=== PATIENT | female | born 1930 | race Caucasian/White ===

== ENCOUNTER 2019-12-25 17:47 | Inpatient (IN) | payer MEDICARE, BC ==
[2019-12-25] MEDS ORDERED: Senokot S 8.6-50 MG TAB PO PRN (20:33)
[2019-12-25] MEDS ORDERED: Bisacodyl 5 MG TAB PO PRN (20:33)
[2019-12-25] MEDS: Famotidine 20 MG TAB PO SCH (22:04)
[2019-12-25] MEDS: Cyclobenzaprine 10 MG TAB PO PRN (22:10)
[2019-12-25] MEDS: HYDROcodone/Acetaminophen 5/325 mg Tablet PO PRN (23:01)
[2019-12-26 05:41] LABS: Anion Gap 14 mmol/L (10-20); BUN (Urea Nitrogen) 26 mg/dL (9.8-20.1); Calc. Creatinine Clearance 41 mL/min (70-130); Calcium 8.4 mg/dL (7.8-10.44); Chloride 99 mmol/L (98-107); Estimated GFR-MDRD 64; Glucose 94 mg/dL (83-110); Potassium 3.7 mmol/L (3.5-5.1); Sodium 135 mmol/L (136-145)
[2019-12-26 05:56] LABS: Carbon Dioxide 26 mmol/L (23-31)
[2019-12-26 06:15] LABS: Hemoglobin 9.5 g/dL (12.0-16.0); Mean Corpuscular Hemoglobin 30.3 pg (27.0-31.0); Mean Corpuscular Volume 96.3 fL (78.0-98.0); Red Blood Cell (RBC) Count 3.14 mill/uL (4.20-5.40); White Blood Cell (WBC) Count 7.8 thou/uL (4.8-10.8)
[2019-12-26 06:16] LABS: Band 5 % (5-11); Lymphocytes 21 % (21-51); MDiff Complete? YES; Manual Diff?? YES; Mean Corpuscular HGB CONC 31.4 g/dL (32.0-36.0); Mean Platelet Volume 7.2 fL (7.4-10.4); Neutrophil 70 % (42-75); Platelet Count 243 thou/uL (130-400); RBC Distribution Width 13.1 % (11.5-14.5); Reactive Lymphocytes 3 % (0-10)
[2019-12-26 06:17] LABS: Eosinophils 1 % (0-10)
[2019-12-26] MEDS: Famotidine 20 MG TAB PO SCH ×2 (08:55→21:04)
[2019-12-26] MEDS: Enoxaparin Sodium 40 MG/0.4 ML SYRINGE SC SCH (08:55)
[2019-12-26] MEDS: HYDROcodone/Acetaminophen 5/325 mg Tablet PO PRN ×2 (08:55→14:26)
[2019-12-26] MEDS: Citalopram 20 MG TAB PO SCH (08:57)
[2019-12-26] MEDS: Amlodipine 5 MG TAB PO SCH (08:57)
[2019-12-26] MEDS: Furosemide 40 MG TAB PO SCH (08:57)
[2019-12-26] MEDS ORDERED: Lisinopril 20 MG TAB PO SCH (09:00)
[2019-12-26] MEDS ORDERED: Loperamide HCl 2 MG CAP PO PRN ×2 (15:34→15:45)
[2019-12-26] MEDS: Lisinopril 20 MG TAB PO SCH (21:03)
[2019-12-26] MEDS: Clindamycin 150 MG CAP PO SCH (21:04)
[2019-12-26] MEDS: Acetaminophen 325 MG TAB PO PRN (21:04)
[2019-12-26] MEDS: Cyclobenzaprine 10 MG TAB PO PRN (21:04)
[2019-12-27] MEDS: Enoxaparin Sodium 40 MG/0.4 ML SYRINGE SC SCH (08:11)
[2019-12-27] MEDS: Amlodipine 5 MG TAB PO SCH (08:12)
[2019-12-27] MEDS: Clindamycin 150 MG CAP PO SCH ×3 (08:12→20:36)
[2019-12-27] MEDS: Famotidine 20 MG TAB PO SCH ×2 (08:12→20:36)
[2019-12-27] MEDS: Citalopram 20 MG TAB PO SCH (08:13)
[2019-12-27] MEDS: Furosemide 40 MG TAB PO SCH (08:13)
[2019-12-27] MEDS: Lisinopril 20 MG TAB PO SCH ×2 (08:14→20:37)
[2019-12-27] MEDS: Acetaminophen 325 MG TAB PO PRN (08:45)
[2019-12-27] MEDS: Cyclobenzaprine 10 MG TAB PO PRN ×2 (08:45→20:35)
[2019-12-27] MEDS: HYDROcodone/Acetaminophen 5/325 mg Tablet PO PRN (20:36)
--- NOTE | 2019-12-28 05:26 | HP ---
HISTORY OF PRESENT ILLNESS: Ms. Shannon Rutherford is an 89-year-old female, who originally presented to [facility] in [place] after a fall. She was found to have two femur fractures as well as a vertebral fracture. She was put in an [place] collar. She was followed up by Neurosurgery, who again recommended continuing the [place] collar. She has not had any vertebral surgery. Orthopedics did go in and pin the femur; however, she eventually required a right total hip arthroplasty. She was put on two weeks antibiotics with clindamycin for prophylaxis. She required PT and OT services and she recovered well from this surgery. However, she does need continued inpatient services. She was transferred here to [facility] in [place] for further PT and OT services. She does have an [place] collar in place. She is ready for physical therapy and very involved in her own care. REVIEW OF SYSTEMS: GENERAL: No fever. Denies any fever or chills. Denies any weakness other than from the right hip surgery. She denies any neck pain. HEENT: Denies any rhinorrhea or congestion. RESPIRATORY: Denies any cough or congestion. CARDIOVASCULAR: Denies any chest pain, palpitations, or edema. GI: Denies any nausea, vomiting, or diarrhea. MEDICATIONS: Medications taken from discharge summary are: 1. Senokot two tabs p.o. at bedtime. 2. MiraLAX 1 cap p.o. b.i.d. 3. Clindamycin 300 p.o. t.i.d. 4. Pravastatin 1 tab p.o. at bedtime. 5. Omeprazole 40 mg p.o. daily. 6. Lisinopril 10 one tab p.o. daily. 7. Gabapentin 300 p.o. t.i.d. 8. Acetaminophen 650 p.o. q.8 hours p.r.n. 9. Furosemide 1 tab p.o. daily. 10. Citalopram 20 mg p.o. daily. 11. Alendronate 70 mg p.o. q.7 days. 12. Norvasc 1 tab p.o. daily. FAMILY HISTORY: Noncontributory. SOCIAL HISTORY: Denies any tobacco use, alcohol use, or illicit drug use. PHYSICAL EXAMINATION: GENERAL: A well-appearing 89-year-old female with [place] collar in place, in no acute distress. The patient is alert and oriented x4, very pleasant. VITAL SIGNS: On admission are blood pressure 173/56, temperature 98.2, pulse 78 to 103, respiratory rate 17 to 20, O2 saturations 94% to 97% on room air. HEENT: Again, [place] collar is in place. NECK: No thyromegaly or goiter. RESPIRATORY: Clear to auscultation bilaterally. No wheezes or rhonchi. CARDIOVASCULAR: Regular rate and rhythm. No murmurs, gallops, or rubs. GI: Soft, nontender to palpation. Bowel sounds positive in all 4 quadrants. no masses felt. EXTREMITIES: Right hip incision seen, clean, dry, and intact. LABORATORY DATA: White cells 7.8, hemoglobin and hematocrit 9.5 and 30.2, platelets 243. Sodium 135, potassium 3.7, chloride 99, carbon dioxide 26, BUN and creatinine 26 and 0.84, GFR 64, glucose 94, and calcium 8.4. ASSESSMENT: 1. Weakness secondary to right total hip arthroplasty and fracture. 2. Hypertension. 3. Constipation. 4. Depression. 5. Osteoporosis. PLAN: 1. To start the patient on a pain management with acetaminophen. May give the patient tramadol if needed. PT and OT consult. 2. Continue blood pressure medication, but we will increase her lisinopril to b.i.d. and monitor with q.4 hour vital signs. 3. MiraLAX p.r.n. for constipation. Bisacodyl p.r.n. for constipation. 4. Continue citalopram. 5. Hospitalist at [facility] recommended two weeks of antibiotic prophylaxis with clindamycin and we will continue that. 6. Continue [place] collar. I will need to follow up with Orthopedic Surgery at [facility] on how long they would like that collar to be in place. 7. Lovenox for DVT prophylaxis. 8. Famotidine for GI prophylaxis. 9. Follow up with PT, OT, and discharge planning. Job ID: [id number] MTDD
--- NOTE | 2019-12-28 08:34 | PRG ---
DATE OF SERVICE: 12/27/2019 SUBJECTIVE: The patient is a pleasant 89-year-old female. Today, she is up in her chair and doing well. She is participating well with PT and OT. She is requiring a good amount of therapy and will likely be here for a week or so with her therapy. We will need to do discharge planning as we go along with possible home health as well. She has no complaints today. However, she does say that her pain is slightly worse today. However, the [place] and Tylenol do help with this pain. No complaints otherwise. Her son is in the room today and he has no questions either. REVIEW OF SYSTEMS: GENERAL: No fever or chills. CARDIO: No chest pain. No palpitations. RESPIRATORY: No cough, no congestion. GI: No vomiting or diarrhea. PHYSICAL EXAMINATION: VITAL SIGNS: Today, blood pressure 136/63, temperature 99.4, pulse 88, respiratory rate 18, O2 sats 95% on room air. GENERAL: Well-appearing 89-year-old female, in no acute distress. HEENT: The patient does have [place] collar in place, but she is up in the chair and able to eat. CARDIO: Regular rate and rhythm. No murmurs, gallops, or rubs. RESPIRATORY: Clear to auscultation bilaterally. No wheezes or rhonchi. GI: Soft, nontender. Bowel sounds are present in all four quadrants. EXTREMITIES: Right hip incision is clean, dry, and intact. LABORATORY DATA: No new labs today. ASSESSMENT: 1. Weakness, status post right total hip arthroplasty. 2. Vertebral fracture with [place] collar. 3. Hypertension, improving. 4. Constipation. PLAN: 1. Continue the patient's Norvasc at 10 mg as well as her lisinopril with 20 mg b.i.d. 2. Continue the patient's clindamycin for prophylaxis. 3. Continue citalopram. 4. Continue [place] collar for now. We will need to contact Neurosurgery at [facility] to see what the prognosis with that is. 5. Continue pain management. Continue PT and OT services. 6. Continue discharge planning with possible home health as needed. Job ID: [id number] MTDD
[2019-12-28] MEDS: Enoxaparin Sodium 40 MG/0.4 ML SYRINGE SC SCH (08:43)
[2019-12-28] MEDS: Clindamycin 150 MG CAP PO SCH ×3 (08:43→20:59)
[2019-12-28] MEDS: Acetaminophen 325 MG TAB PO PRN (08:43)
[2019-12-28] MEDS: Amlodipine 5 MG TAB PO SCH (08:44)
[2019-12-28] MEDS: Citalopram 20 MG TAB PO SCH (08:44)
[2019-12-28] MEDS: Furosemide 40 MG TAB PO SCH (08:44)
[2019-12-28] MEDS: Lisinopril 20 MG TAB PO SCH ×2 (08:44→21:01)
[2019-12-28] MEDS: Famotidine 20 MG TAB PO SCH ×2 (08:44→21:00)
[2019-12-28] MEDS: HYDROcodone/Acetaminophen 5/325 mg Tablet PO PRN ×3 (11:58→21:05)
--- NOTE | 2019-12-28 16:36 | PDOC.BPN ---
- Brief Progress Note Encounter Date: 12/28/19 Encounter Time: 16:32 SUBJECTIVE: doing well. no complaints today, other than pain from surgery. But this is well controlled with PO meds. Awaiting records from [facility] regarding [place] collar. Participating well in therapy. ROS: Denies fever, chills, N/V/D, constipation. OBJECTIVE: Vital Signs - Most Recent Temp Pulse Resp BP Pulse Ox 98.0 F 80 18 125/60 98 12/28/19 08:00 12/28/19 08:44 12/28/19 08:00 12/28/19 08:44 12/28/19 08:00 PE: Gen: Well-appearing. NAD. CV: RRR, no murmurs, gallops or rubs. Resp: CTAB. no wheezes or rhonchi. GI: Soft non-tender. BS+ x4. Ext: [place] collar in place. R hip incision c/d/i. Labs: No new labs today ASSESSMENT: 1. Weakness s/p R hip fracture repair and replacement, with vertebral fracture 2. Hypertension, improving PLAN: -Continue oral anti-hypertensives. Will switch vitals back to qShift now. -Continue PT/OT services -Need to f/u with [facility] in regards to [place] Collar. Asked nursing staff to try and get the discharge summary for patient.
[2019-12-29] MEDS: Amlodipine 5 MG TAB PO SCH (08:52)
[2019-12-29] MEDS: Enoxaparin Sodium 40 MG/0.4 ML SYRINGE SC SCH (08:52)
[2019-12-29] MEDS: Citalopram 20 MG TAB PO SCH (08:53)
[2019-12-29] MEDS: Lisinopril 20 MG TAB PO SCH ×2 (08:53→20:15)
[2019-12-29] MEDS: Famotidine 20 MG TAB PO SCH ×2 (08:53→20:14)
[2019-12-29] MEDS: Clindamycin 150 MG CAP PO SCH ×3 (08:53→20:15)
[2019-12-29] MEDS: Furosemide 40 MG TAB PO SCH (08:54)
[2019-12-29] MEDS: HYDROcodone/Acetaminophen 5/325 mg Tablet PO PRN ×3 (08:58→20:15)
[2019-12-29] MEDS: Acetaminophen 325 MG TAB PO PRN (14:14)
[2019-12-29] MEDS ORDERED: Bisacodyl 5 MG TAB PO PRN (20:09)
[2019-12-29] MEDS ORDERED: Loperamide HCl 2 MG CAP PO PRN (20:10)
[2019-12-30] MEDS: HYDROcodone/Acetaminophen 5/325 mg Tablet PO PRN ×4 (06:26→20:59)
[2019-12-30] MEDS: Citalopram 20 MG TAB PO SCH (08:48)
[2019-12-30] MEDS: Clindamycin 150 MG CAP PO SCH ×3 (08:48→20:59)
[2019-12-30] MEDS: Amlodipine 5 MG TAB PO SCH (08:48)
[2019-12-30] MEDS: Famotidine 20 MG TAB PO SCH ×2 (08:49→21:00)
[2019-12-30] MEDS: Furosemide 40 MG TAB PO SCH (08:49)
[2019-12-30] MEDS: Enoxaparin Sodium 40 MG/0.4 ML SYRINGE SC SCH (08:49)
[2019-12-30] MEDS: Lisinopril 20 MG TAB PO SCH ×2 (08:49→20:59)
[2019-12-30] MEDS: Acetaminophen 325 MG TAB PO PRN (15:03)
[2019-12-31] MEDS: HYDROcodone/Acetaminophen 5/325 mg Tablet PO PRN ×3 (07:14→18:35)
[2019-12-31] MEDS ORDERED: Amlodipine 5 MG TAB ONE (07:56)
[2019-12-31] MEDS: Citalopram 20 MG TAB PO SCH (08:44)
[2019-12-31] MEDS: Famotidine 20 MG TAB PO SCH ×2 (08:44→20:47)
[2019-12-31] MEDS: Enoxaparin Sodium 40 MG/0.4 ML SYRINGE SC SCH (08:45)
[2019-12-31] MEDS: Clindamycin 150 MG CAP PO SCH ×3 (08:45→20:47)
[2019-12-31] MEDS: Furosemide 40 MG TAB PO SCH (08:45)
[2019-12-31] MEDS: Amlodipine 5 MG TAB PO SCH (08:45)
[2019-12-31] MEDS: Lisinopril 20 MG TAB PO SCH ×2 (08:45→20:48)
[2019-12-31] MEDS: Acetaminophen 325 MG TAB PO PRN ×2 (09:40→20:48)
[2019-12-31] MEDS ORDERED: HYDROcodone/Acetaminophen 5/325 mg Tablet ONE (14:18)
[2019-12-31] MEDS: Cyclobenzaprine 10 MG TAB PO PRN (20:48)
[2020-01-01] MEDS: Famotidine 20 MG TAB PO SCH ×2 (07:50→19:57)
[2020-01-01] MEDS: Furosemide 40 MG TAB PO SCH (07:50)
[2020-01-01] MEDS: Citalopram 20 MG TAB PO SCH (07:50)
[2020-01-01] MEDS: Enoxaparin Sodium 40 MG/0.4 ML SYRINGE SC SCH (07:50)
[2020-01-01] MEDS: Acetaminophen 325 MG TAB PO PRN ×2 (07:51→19:56)
[2020-01-01] MEDS: Clindamycin 150 MG CAP PO SCH ×3 (07:51→19:56)
[2020-01-01] MEDS: Lisinopril 20 MG TAB PO SCH ×2 (07:51→19:57)
[2020-01-01] MEDS: Amlodipine 5 MG TAB PO SCH (07:52)
[2020-01-01] MEDS: Cyclobenzaprine 10 MG TAB PO PRN ×2 (07:52→19:57)
[2020-01-01] MEDS: HYDROcodone/Acetaminophen 5/325 mg Tablet PO PRN ×2 (10:00→16:59)
--- NOTE | 2020-01-01 16:27 | PDOC.BPN ---
- Brief Progress Note Encounter Date: 01/01/20 Encounter Time: 16:23 SUBJECTIVE: Doing well. frustrated that she is still wearing neck brace. discussed that these were precautions from prev hospital stay and she will need this until she can f/u with Neurosx. However, we will try to get in contact with doctors from [facility]. ROS: No fever, chills, cough, congestion, CP OBJECTIVE: Vital Signs - Most Recent Temp Pulse Resp BP Pulse Ox 98.7 F 95 20 159/65 H 94 L 01/01/20 07:42 01/01/20 07:52 01/01/20 07:42 01/01/20 07:42 01/01/20 07:42 No new labs Physical Exam General: Well-appearing, NAD. [place] collar in place. CV: RRR, no murmurs Resp: CTAB GI: soft, non tender EXT: R hip incision c/d/i ASSESSMENT: 1. Weakness s/p R hip fracture repair and replacement, with vertebral fracture 2. Hypertension, improving PLAN: -Continue oral anti-hypertensives. Will switch vitals back to qShift now. -Continue PT/OT services -Need to f/u with RADIOLOGIC THERAPIST in regards to [place] Collar. Got D/C summary from RADIOLOGIC THERAPIST. States [place] collar needs to be in place until she can see Neurosx. will need to contact them to clarify. Pt does have appt in Jan for neurosx but this will be video conference and not in person.
[2020-01-02] MEDS: Famotidine 20 MG TAB PO SCH ×2 (08:58→20:15)
[2020-01-02] MEDS: Furosemide 40 MG TAB PO SCH (08:59)
[2020-01-02] MEDS: Lisinopril 20 MG TAB PO SCH ×2 (08:59→20:16)
[2020-01-02] MEDS: Amlodipine 5 MG TAB PO SCH (08:59)
[2020-01-02] MEDS: Clindamycin 150 MG CAP PO SCH ×3 (08:59→20:17)
[2020-01-02] MEDS: Enoxaparin Sodium 40 MG/0.4 ML SYRINGE SC SCH (09:00)
[2020-01-02] MEDS: Citalopram 20 MG TAB PO SCH (09:00)
[2020-01-02] MEDS: HYDROcodone/Acetaminophen 5/325 mg Tablet PO PRN ×3 (09:12→20:16)
--- NOTE | 2020-01-02 13:21 | PDOC.BPN ---
- Brief Progress Note Encounter Date: 01/02/20 Encounter Time: 13:19 SUBJECTIVE: Doing well. frustrated that she is still wearing neck brace. discussed that these were precautions from prev hospital stay and she will need this until she can f/u with Neurosx. However, we will try to get in contact with doctors from [facility]. ROS: No fever, chills, cough, congestion, CP OBJECTIVE: Vital Signs - Most Recent Temp Pulse Resp BP Pulse Ox 96.3 F L 97 18 125/57 L 98 01/02/20 08:00 01/02/20 08:00 01/02/20 08:00 01/02/20 08:00 01/02/20 08:00 no new labs Physical Exam General: Well-appearing, NAD. [place] collar in place. CV: RRR, no murmurs Resp: CTAB GI: soft, non tender EXT: R hip incision c/d/i ASSESSMENT: 1. Weakness s/p R hip fracture repair and replacement, with vertebral fracture 2. Hypertension, improving PLAN: -Continue oral anti-hypertensives. -Continue PT/OT services -Patient is going for schedule f/u with ortho today -Neurosx appt set for Jan 17. We will keep [place] collar on prophylactically until then
[2020-01-02] MEDS: Cyclobenzaprine 10 MG TAB PO PRN (20:16)
[2020-01-03] MEDS: Enoxaparin Sodium 40 MG/0.4 ML SYRINGE SC SCH (08:19)
[2020-01-03] MEDS: Clindamycin 150 MG CAP PO SCH ×3 (08:19→20:42)
[2020-01-03] MEDS: Citalopram 20 MG TAB PO SCH (08:19)
[2020-01-03] MEDS: Lisinopril 20 MG TAB PO SCH ×2 (08:20→20:41)
[2020-01-03] MEDS: HYDROcodone/Acetaminophen 5/325 mg Tablet PO PRN ×3 (08:20→20:41)
[2020-01-03] MEDS: Amlodipine 5 MG TAB PO SCH (08:20)
[2020-01-03] MEDS: Furosemide 40 MG TAB PO SCH (08:20)
[2020-01-03] MEDS: Famotidine 20 MG TAB PO SCH ×2 (08:20→20:41)
[2020-01-04 05:24] LABS: #Basophils 0.1 thou/uL (0.0-0.2); #Eosinphils 0.3 thou/uL (0.0-0.7); #Monocytes 0.6 thou/uL (0.11-0.59); #Neutrophils 4.7 thou/uL (1.40-6.50); %Basophils 1.6 % (0.0-1.0); %Eosinophils 5.1 % (0.0-10.0); %Lymphocytes 14.6 % (21.0-51.0); %Monocytes 9.5 % (0.0-10.0); %Neutrophils 69.2 % (42.0-75.0); Mean Corpuscular Hemoglobin 30.7 pg (27.0-31.0); Mean Corpuscular Volume 95.9 fL (78.0-98.0); Mean Platelet Volume 6.1 fL (7.4-10.4); Platelet Count 426 thou/uL (130-400); RBC Distribution Width 13.3 % (11.5-14.5); Red Blood Cell (RBC) Count 2.92 mill/uL (4.20-5.40); White Blood Cell (WBC) Count 6.7 thou/uL (4.8-10.8)
[2020-01-04 05:38] LABS: Anion Gap 13 mmol/L (10-20); BUN (Urea Nitrogen) 28 mg/dL (9.8-20.1); Calc. Creatinine Clearance 31 mL/min (70-130); Calcium 8.4 mg/dL (7.8-10.44); Carbon Dioxide 25 mmol/L (23-31); Chloride 103 mmol/L (98-107); Estimated GFR-MDRD 47; Glucose 104 mg/dL (83-110); Potassium 4.3 mmol/L (3.5-5.1); Sodium 137 mmol/L (136-145)
[2020-01-04] MEDS: HYDROcodone/Acetaminophen 5/325 mg Tablet PO PRN ×3 (05:38→21:17)
[2020-01-04] MEDS: Enoxaparin Sodium 40 MG/0.4 ML SYRINGE SC SCH (08:31)
[2020-01-04] MEDS: Furosemide 40 MG TAB PO SCH (08:32)
[2020-01-04] MEDS: Clindamycin 150 MG CAP PO SCH ×3 (08:32→21:15)
[2020-01-04] MEDS: Amlodipine 5 MG TAB PO SCH (08:32)
[2020-01-04] MEDS: Famotidine 20 MG TAB PO SCH ×2 (08:32→21:15)
[2020-01-04] MEDS: Citalopram 20 MG TAB PO SCH (08:32)
[2020-01-04] MEDS: Lisinopril 20 MG TAB PO SCH ×2 (08:33→21:15)
[2020-01-05] MEDS: HYDROcodone/Acetaminophen 5/325 mg Tablet PO PRN ×3 (06:11→21:04)
[2020-01-05] MEDS: Citalopram 20 MG TAB PO SCH (08:41)
[2020-01-05] MEDS: Enoxaparin Sodium 40 MG/0.4 ML SYRINGE SC SCH (08:42)
[2020-01-05] MEDS: Lisinopril 20 MG TAB PO SCH ×2 (08:42→21:03)
[2020-01-05] MEDS: Famotidine 20 MG TAB PO SCH ×2 (08:42→21:03)
[2020-01-05] MEDS: Furosemide 40 MG TAB PO SCH (08:42)
[2020-01-05] MEDS: Clindamycin 150 MG CAP PO SCH ×3 (08:42→21:03)
[2020-01-05] MEDS: Amlodipine 5 MG TAB PO SCH (10:51)
--- NOTE | 2020-01-05 16:16 | PDOC.BPN ---
- Brief Progress Note Encounter Date: 01/05/20 Encounter Time: 16:15 SUBJECTIVE: Doing well. No complaints today. doing well in therapy. ROS: No fever, chills, cough, congestion, CP OBJECTIVE: Vital Signs - Most Recent Temp Pulse Resp BP Pulse Ox 98.0 F 82 18 130/57 L 100 01/05/20 08:36 01/05/20 08:36 01/05/20 08:36 01/05/20 08:36 01/05/20 08:36 Laboratory Results 01/04/20 01/04/20 05:10 05:10 WBC 6.7 RBC 2.92 L Hgb 9.0 L Hct 28.1 L MCV 95.9 MCH 30.7 MCHC 32.0 RDW 13.3 Plt Count 426 H MPV 6.1 L Neutrophils % 69.2 Lymphocytes % 14.6 L Monocytes % 9.5 Eosinophils % 5.1 Basophils % 1.6 H Neutrophils # 4.7 Lymphocytes # 1.0 L Monocytes # 0.6 H Eosinophils # 0.3 Basophils # 0.1 Sodium 137 Potassium 4.3 Chloride 103 Carbon Dioxide 25 Anion Gap 13 BUN 28 H Creatinine 1.10 Estimated GFR (MDRD) 47 Glucose 104 Calcium 8.4 Physical Exam General: Well-appearing, NAD. [place] collar in place. CV: RRR, no murmurs Resp: CTAB GI: soft, non tender EXT: R hip incision c/d/i ASSESSMENT: 1. Weakness s/p R hip fracture repair and replacement, with vertebral fracture 2. Hypertension, improving PLAN: -Continue oral anti-hypertensives. -Continue PT/OT services -Patient is going for schedule f/u with ortho today -Neurosx appt set for Jan 17. We will keep [place] collar on prophylactically until then
[2020-01-06] MEDS: Enoxaparin Sodium 40 MG/0.4 ML SYRINGE SC SCH (08:13)
[2020-01-06] MEDS: Citalopram 20 MG TAB PO SCH (08:14)
[2020-01-06] MEDS: Clindamycin 150 MG CAP PO SCH ×3 (08:14→21:16)
[2020-01-06] MEDS: Famotidine 20 MG TAB PO SCH ×2 (08:14→21:16)
[2020-01-06] MEDS: Lisinopril 20 MG TAB PO SCH ×2 (08:15→21:17)
[2020-01-06] MEDS: Amlodipine 5 MG TAB PO SCH (08:15)
[2020-01-06] MEDS: Furosemide 40 MG TAB PO SCH (08:15)
[2020-01-06] MEDS: HYDROcodone/Acetaminophen 5/325 mg Tablet PO PRN ×3 (08:16→21:17)
--- NOTE | 2020-01-06 16:01 | PRG ---
DATE OF SERVICE: 01/06/2020 SUBJECTIVE: Ms. Rutherford is up in her wheelchair. She is tolerating her hard cervical collar. She denies any questions or concerns. She is happy with her progress. OBJECTIVE: VITAL SIGNS: She is afebrile, heart rate 85, respirations 20, oxygen saturation 93% on room air, blood pressure is 129/60. CARDIOVASCULAR SYSTEM: S1 and S2 plus. RESPIRATORY SYSTEM: Normal vesicular breath sounds. ABDOMEN: Soft, nontender. Bowel sounds heard in all quadrants. EXTREMITIES: Without cyanosis or clubbing. IMPRESSION: 1. Right hip fracture, status post surgical fixation. 2. Hypertension. 3. Cervical vertebral fracture, on conservative management. 4. Dyslipidemia. 5. Osteoporosis. 6. Depression and anxiety. 7. Deconditioning. PLAN: 1. Continue current medications. 2. Orthopedic precautions. 3. Heart-healthy diet. 4. Monitor blood pressure and adjust medications. 5. Continue spinal precautions. 6. DVT prophylaxis per primary service. 7. Decubitus precautions. 8. Stress ulcer prophylaxis. 9. Routine laboratory values and therapy. Job ID: [id number]
[2020-01-07] MEDS: Enoxaparin Sodium 40 MG/0.4 ML SYRINGE SC SCH (09:32)
[2020-01-07] MEDS: Famotidine 20 MG TAB PO SCH ×2 (09:32→21:08)
[2020-01-07] MEDS: Clindamycin 150 MG CAP PO SCH ×3 (09:33→21:08)
[2020-01-07] MEDS: Citalopram 20 MG TAB PO SCH (09:33)
[2020-01-07] MEDS: Amlodipine 5 MG TAB PO SCH (09:33)
[2020-01-07] MEDS: Furosemide 40 MG TAB PO SCH (09:33)
[2020-01-07] MEDS: Lisinopril 20 MG TAB PO SCH ×2 (09:34→21:07)
[2020-01-07] MEDS: HYDROcodone/Acetaminophen 5/325 mg Tablet PO PRN ×3 (09:38→21:08)
--- NOTE | 2020-01-07 16:41 | PRG ---
DATE OF SERVICE: SUBJECTIVE: Ms. Rutherford is up in her chair. She apparently had a good lunch. She is tolerating her cervical collar. She denies any questions or concerns. Pain is well controlled. OBJECTIVE: VITAL SIGNS: She is afebrile. T-max 99.3, pulse 100, respirations 20, oxygen saturation 97% on room air, blood pressure 129/56. CARDIOVASCULAR SYSTEM: S1, S2 plus. RESPIRATORY SYSTEM: Normal vesicular breath sounds. ABDOMEN: Soft and nontender. Bowel sounds heard in all quadrants. EXTREMITIES: Without cyanosis or clubbing. CENTRAL NERVOUS SYSTEM: Generalized weakness, otherwise nonfocal. IMPRESSION: 1. Right hip fracture, status post surgical fixation. 2. Cervical vertebral fracture, on conservative management. 3. Hypertension. 4. Dyslipidemia. 5. Osteoporosis. 6. Depression and anxiety. 7. Deconditioning. PLAN: 1. Continue current medications. 2. Heart-healthy diet. 3. Monitor blood pressure and adjust medications. 4. Spinal and orthopedic precautions. 5. Incision care. 6. DVT prophylaxis. 7. Decubitus precautions. 8. Physical therapy. 9. Dr. Cunha will be back tonight. Job ID: [id number]
[2020-01-08] MEDS: HYDROcodone/Acetaminophen 5/325 mg Tablet PO PRN ×3 (07:09→20:27)
[2020-01-08] MEDS: Citalopram 20 MG TAB PO SCH (09:08)
[2020-01-08] MEDS: Amlodipine 5 MG TAB PO SCH (09:08)
[2020-01-08] MEDS: Furosemide 40 MG TAB PO SCH (09:09)
[2020-01-08] MEDS: Lisinopril 20 MG TAB PO SCH ×2 (09:09→20:27)
[2020-01-08] MEDS: Enoxaparin Sodium 40 MG/0.4 ML SYRINGE SC SCH (09:09)
[2020-01-08] MEDS: Famotidine 20 MG TAB PO SCH ×2 (09:09→20:27)
[2020-01-08] MEDS: Clindamycin 150 MG CAP PO SCH ×3 (09:09→20:27)
[2020-01-09 05:35] LABS: #Basophils 0.1 thou/uL (0.0-0.2); #Eosinphils 0.3 thou/uL (0.0-0.7); #Monocytes 0.6 thou/uL (0.11-0.59); #Neutrophils 2.9 thou/uL (1.40-6.50); %Basophils 1.9 % (0.0-1.0); %Eosinophils 6.6 % (0.0-10.0); %Lymphocytes 19.7 % (21.0-51.0); %Monocytes 12.4 % (0.0-10.0); %Neutrophils 59.5 % (42.0-75.0); Hemoglobin 9.7 g/dL (12.0-16.0); Mean Corpuscular HGB CONC 31.1 g/dL (32.0-36.0); Mean Corpuscular Hemoglobin 30.1 pg (27.0-31.0); Mean Corpuscular Volume 96.8 fL (78.0-98.0); Mean Platelet Volume 6.2 fL (7.4-10.4); Platelet Count 346 thou/uL (130-400); RBC Distribution Width 13.1 % (11.5-14.5); Red Blood Cell (RBC) Count 3.22 mill/uL (4.20-5.40); White Blood Cell (WBC) Count 4.9 thou/uL (4.8-10.8)
[2020-01-09 05:48] LABS: Anion Gap 14 mmol/L (10-20); BUN (Urea Nitrogen) 20 mg/dL (9.8-20.1); Calc. Creatinine Clearance 36 mL/min (70-130); Calcium 8.8 mg/dL (7.8-10.44); Carbon Dioxide 27 mmol/L (23-31); Chloride 101 mmol/L (98-107); Estimated GFR-MDRD 57; Glucose 101 mg/dL (83-110); Potassium 4.2 mmol/L (3.5-5.1); Sodium 138 mmol/L (136-145)
[2020-01-09] MEDS: HYDROcodone/Acetaminophen 5/325 mg Tablet PO PRN ×2 (07:00→20:32)
[2020-01-09] MEDS: Amlodipine 5 MG TAB PO SCH (08:49)
[2020-01-09] MEDS: Clindamycin 150 MG CAP PO SCH ×3 (08:49→20:32)
[2020-01-09] MEDS: Enoxaparin Sodium 40 MG/0.4 ML SYRINGE SC SCH (08:50)
[2020-01-09] MEDS: Famotidine 20 MG TAB PO SCH ×2 (08:51→20:32)
[2020-01-09] MEDS: Lisinopril 20 MG TAB PO SCH ×2 (08:51→20:32)
[2020-01-09] MEDS: Furosemide 40 MG TAB PO SCH (08:51)
[2020-01-09] MEDS: Citalopram 20 MG TAB PO SCH (08:51)
[2020-01-09] MEDS: Acetaminophen 325 MG TAB PO PRN (08:57)
--- NOTE | 2020-01-09 11:36 | RAD ---
CERVICAL SPINE SERIES 3 VIEWS: Date: 01/09/2020 HISTORY: Fall. Follow-up. Neck pain. COMPARISON: 01/13/2018 CT examination. FINDINGS: There is a reversal to the normal cervical curve with severe arthritic changes of the spine. Changes are most pronounced at the C5-6 and C6-7 levels. There is an anterolisthesis of C3 on C4 of approxima tely 4.0 mm. Minimal anterolisthesis of C4 on C5. No fractures are appreciated. IMPRESSION: Severe arthritic change of the spine. POS: AH
[2020-01-09] MEDS: Cyclobenzaprine 10 MG TAB PO PRN (20:32)
[2020-01-10] MEDS: HYDROcodone/Acetaminophen 5/325 mg Tablet PO PRN ×4 (01:20→20:25)
[2020-01-10] MEDS: Enoxaparin Sodium 40 MG/0.4 ML SYRINGE SC SCH (09:36)
[2020-01-10] MEDS: Furosemide 40 MG TAB PO SCH (09:37)
[2020-01-10] MEDS: Clindamycin 150 MG CAP PO SCH ×3 (09:37→20:24)
[2020-01-10] MEDS: Lisinopril 20 MG TAB PO SCH ×2 (09:37→20:25)
[2020-01-10] MEDS: Citalopram 20 MG TAB PO SCH (09:37)
[2020-01-10] MEDS: Famotidine 20 MG TAB PO SCH ×2 (09:37→20:25)
[2020-01-10] MEDS: Amlodipine 5 MG TAB PO SCH (09:38)
[2020-01-10] MEDS: Senokot S 8.6-50 MG TAB PO PRN (09:44)
--- NOTE | 2020-01-10 13:03 | PDOC.BPN ---
- Brief Progress Note Encounter Date: 01/10/20 Encounter Time: 13:00 SUBJECTIVE: Doing well. doing well in therapy. Has appt with Dr. Lazcano on 02/01. Has appt with [facility] on 01/16. ROS: No fever, chills, cough, congestion, CP OBJECTIVE: Vital Signs - Most Recent Temp Pulse Resp BP Pulse Ox 97.6 F 95 16 130/59 L 96 01/10/20 07:55 01/10/20 09:38 01/10/20 07:55 01/10/20 09:37 01/10/20 07:55 Physical Exam General: Well-appearing, NAD. [place] collar in place. CV: RRR, no murmurs Resp: CTAB GI: soft, non tender EXT: R hip incision c/d/i ASSESSMENT: 1. Weakness s/p R hip fracture repair and replacement, with vertebral fracture 2. Hypertension, improving PLAN: -Continue oral anti-hypertensives. -Continue PT/OT services -Neurosx appt set for Jan 16. We will keep [place] collar on prophylactically until then. -Case Mngt consulted for discharge planning. PT/OT rec'd home with .
[2020-01-10] MEDS: Cyclobenzaprine 10 MG TAB PO PRN (20:25)
[2020-01-11] MEDS: Acetaminophen 325 MG TAB PO PRN (06:23)
[2020-01-11] MEDS: Citalopram 20 MG TAB PO SCH (09:23)
[2020-01-11] MEDS: Clindamycin 150 MG CAP PO SCH ×3 (09:23→20:48)
[2020-01-11] MEDS: Enoxaparin Sodium 40 MG/0.4 ML SYRINGE SC SCH (09:23)
[2020-01-11] MEDS: Furosemide 40 MG TAB PO SCH (09:24)
[2020-01-11] MEDS: Lisinopril 20 MG TAB PO SCH ×2 (09:24→20:48)
[2020-01-11] MEDS: Amlodipine 5 MG TAB PO SCH (09:24)
[2020-01-11] MEDS: Famotidine 20 MG TAB PO SCH ×2 (09:24→20:48)
[2020-01-11] MEDS: HYDROcodone/Acetaminophen 5/325 mg Tablet PO PRN ×3 (09:27→20:48)
--- NOTE | 2020-01-11 13:16 | PDOC.BPN ---
- Brief Progress Note Encounter Date: 01/11/20 Encounter Time: 13:14 SUBJECTIVE: Doing well. doing well in therapy. Has appt with Dr. Lazcano on 02/01. Has appt with MARIELY on 01/16. ROS: No fever, chills, cough, congestion, CP OBJECTIVE: Vital Signs - Most Recent Temp Pulse Resp BP Pulse Ox 98.7 F 98 18 144/65 H 97 01/11/20 08:00 01/11/20 09:24 01/11/20 08:00 01/11/20 09:24 01/11/20 08:00 Physical Exam General: Well-appearing, NAD. [place] collar in place. CV: RRR, no murmurs Resp: CTAB GI: soft, non tender EXT: R hip incision c/d/i ASSESSMENT: 1. Weakness s/p R hip fracture repair and replacement, with vertebral fracture 2. Hypertension, well controlled PLAN: -Continue oral anti-hypertensives. -Continue PT/OT services -Neurosx appt set for Jan 16. We will keep [place] collar on prophylactically until then. -Case Mngt consulted for discharge planning. PT/OT rec'd home with .
[2020-01-12] MEDS: Lisinopril 20 MG TAB PO SCH ×2 (08:20→20:16)
[2020-01-12] MEDS: Famotidine 20 MG TAB PO SCH ×2 (08:21→20:15)
[2020-01-12] MEDS: Clindamycin 150 MG CAP PO SCH ×3 (08:21→20:16)
[2020-01-12] MEDS: Citalopram 20 MG TAB PO SCH (08:21)
[2020-01-12] MEDS: Amlodipine 5 MG TAB PO SCH (08:21)
[2020-01-12] MEDS: Furosemide 40 MG TAB PO SCH (08:21)
[2020-01-12] MEDS: Enoxaparin Sodium 40 MG/0.4 ML SYRINGE SC SCH (08:22)
[2020-01-12] MEDS: HYDROcodone/Acetaminophen 5/325 mg Tablet PO PRN ×3 (08:30→20:16)
[2020-01-13] MEDS: HYDROcodone/Acetaminophen 5/325 mg Tablet PO PRN ×3 (06:07→21:01)
[2020-01-13 06:21] LABS: #Basophils 0.1 thou/uL (0.0-0.2); #Eosinphils 0.4 thou/uL (0.0-0.7); #Lymphocytes 1.3 thou/uL (1.20-3.40); #Monocytes 0.6 thou/uL (0.11-0.59); #Neutrophils 3.3 thou/uL (1.40-6.50); %Basophils 1.8 % (0.0-1.0); %Eosinophils 7.6 % (0.0-10.0); %Lymphocytes 22.8 % (21.0-51.0); %Monocytes 9.7 % (0.0-10.0); %Neutrophils 58.1 % (42.0-75.0); Hemoglobin 10.9 g/dL (12.0-16.0); Mean Corpuscular HGB CONC 30.9 g/dL (32.0-36.0); Mean Corpuscular Hemoglobin 30.1 pg (27.0-31.0); Mean Corpuscular Volume 97.4 fL (78.0-98.0); Mean Platelet Volume 6.9 fL (7.4-10.4); Platelet Count 343 thou/uL (130-400); RBC Distribution Width 13.5 % (11.5-14.5); Red Blood Cell (RBC) Count 3.62 mill/uL (4.20-5.40); White Blood Cell (WBC) Count 5.6 thou/uL (4.8-10.8)
[2020-01-13 06:31] LABS: Anion Gap 16 mmol/L (10-20); BUN (Urea Nitrogen) 18 mg/dL (9.8-20.1); Calc. Creatinine Clearance 35 mL/min (70-130); Calcium 9.1 mg/dL (7.8-10.44); Carbon Dioxide 27 mmol/L (23-31); Chloride 98 mmol/L (98-107); Estimated GFR-MDRD 55; Glucose 109 mg/dL (83-110); Potassium 3.4 mmol/L (3.5-5.1); Sodium 138 mmol/L (136-145)
[2020-01-13] MEDS: Amlodipine 5 MG TAB PO SCH (08:10)
[2020-01-13] MEDS: Furosemide 40 MG TAB PO SCH (08:10)
[2020-01-13] MEDS: Enoxaparin Sodium 40 MG/0.4 ML SYRINGE SC SCH (08:10)
[2020-01-13] MEDS: Citalopram 20 MG TAB PO SCH (08:11)
[2020-01-13] MEDS: Lisinopril 20 MG TAB PO SCH ×2 (08:11→21:01)
[2020-01-13] MEDS: Clindamycin 150 MG CAP PO SCH ×3 (08:11→21:01)
[2020-01-13] MEDS: Famotidine 20 MG TAB PO SCH ×2 (08:11→21:00)
[2020-01-13] MEDS: Cyclobenzaprine 10 MG TAB PO PRN (21:01)
[2020-01-14 06:44] VITALS: BMI 21.3
--- NOTE | 2020-01-14 07:54 | PDOC.BPN ---
- Brief Progress Note Encounter Date: 01/14/20 Encounter Time: 07:53 SUBJECTIVE: Doing well. Has appt with Dr. Lazcano on 02/01. Has appt with [facility] on 01/16. ROS: No fever, chills, cough, congestion, CP OBJECTIVE: Vital Signs - Most Recent Temp Pulse Resp BP Pulse Ox 98.8 F 100 26 H 135/63 96 01/13/20 19:32 01/13/20 19:32 01/13/20 19:32 01/13/20 21:01 01/13/20 20:00 Physical Exam General: Well-appearing, NAD. [place] collar in place. CV: RRR, no murmurs Resp: CTAB GI: soft, non tender EXT: R hip incision c/d/i ASSESSMENT: 1. Weakness s/p R hip fracture repair and replacement, with vertebral fracture 2. Hypertension, well controlled PLAN: -Continue oral anti-hypertensives. -Continue PT/OT services -Neurosx appt set for Jan 16. We will keep [place] collar on prophylactically until then. -Case Mngt consulted for discharge planning. PT/OT rec'd home with .
[2020-01-14] MEDS: Enoxaparin Sodium 40 MG/0.4 ML SYRINGE SC SCH (07:58)
[2020-01-14] MEDS: Amlodipine 5 MG TAB PO SCH (07:59)
[2020-01-14] MEDS: Clindamycin 150 MG CAP PO SCH ×3 (07:59→20:48)
[2020-01-14] MEDS: Lisinopril 20 MG TAB PO SCH ×2 (08:00→20:48)
[2020-01-14] MEDS: Furosemide 40 MG TAB PO SCH (08:00)
[2020-01-14] MEDS: Famotidine 20 MG TAB PO SCH ×2 (08:00→20:49)
[2020-01-14] MEDS: Citalopram 20 MG TAB PO SCH (08:01)
[2020-01-14] MEDS: HYDROcodone/Acetaminophen 5/325 mg Tablet PO PRN ×3 (08:01→20:50)
[2020-01-14] MEDS: Cyclobenzaprine 10 MG TAB PO PRN (20:49)
[2020-01-15] MEDS: Enoxaparin Sodium 40 MG/0.4 ML SYRINGE SC SCH (07:58)
[2020-01-15] MEDS: Citalopram 20 MG TAB PO SCH (07:59)
[2020-01-15] MEDS: Clindamycin 150 MG CAP PO SCH ×3 (07:59→20:42)
[2020-01-15] MEDS: Famotidine 20 MG TAB PO SCH ×2 (08:00→20:41)
[2020-01-15] MEDS: HYDROcodone/Acetaminophen 5/325 mg Tablet PO PRN ×4 (08:07→20:42)
[2020-01-15] MEDS: Amlodipine 5 MG TAB PO SCH (08:08)
[2020-01-15] MEDS: Lisinopril 20 MG TAB PO SCH ×2 (08:09→20:42)
[2020-01-15] MEDS: Furosemide 40 MG TAB PO SCH (08:10)
[2020-01-15] MEDS: Senokot S 8.6-50 MG TAB PO PRN (16:41)
[2020-01-15] MEDS: Cyclobenzaprine 10 MG TAB PO PRN (20:42)
[2020-01-16 05:40] LABS: Anion Gap 12 mmol/L (10-20); BUN (Urea Nitrogen) 20 mg/dL (9.8-20.1); Calc. Creatinine Clearance 31 mL/min (70-130); Calcium 8.6 mg/dL (7.8-10.44); Carbon Dioxide 28 mmol/L (23-31); Chloride 101 mmol/L (98-107); Estimated GFR-MDRD 56; Glucose 111 mg/dL (83-110); Sodium 137 mmol/L (136-145)
[2020-01-16] MEDS: Citalopram 20 MG TAB PO SCH (09:12)
[2020-01-16] MEDS: Enoxaparin Sodium 40 MG/0.4 ML SYRINGE SC SCH (09:12)
[2020-01-16] MEDS: Clindamycin 150 MG CAP PO SCH (09:12)
[2020-01-16] MEDS: Amlodipine 5 MG TAB PO SCH (09:12)
[2020-01-16] MEDS: Lisinopril 20 MG TAB PO SCH ×2 (09:13→21:38)
[2020-01-16] MEDS: Famotidine 20 MG TAB PO SCH ×2 (09:13→21:38)
[2020-01-16] MEDS: Furosemide 40 MG TAB PO SCH (09:13)
[2020-01-16] MEDS: HYDROcodone/Acetaminophen 5/325 mg Tablet PO PRN ×3 (09:15→19:00)
--- NOTE | 2020-01-16 11:02 | RAD ---
CERVICAL SPINE 4 VIEWS: Date: 01/16/2020 INDICATION: Neck pain. Comparison made to the recent cervical spine films of 01/09/2020. FINDINGS: Severe degenerative changes of the cervical spine again noted. The anterolisthesis at C3-4 is again s een. Loss of disc space with prominent hypertrophic degenerative change again noted at the C4-5, C5-6 , and C6-7 levels. No interval change. IMPRESSION: Severe degenerative changes of cervical spine. No change from 01/09/2020. POS: LIZZY
[2020-01-16] MEDS: Cyclobenzaprine 10 MG TAB PO PRN (21:38)
[2020-01-17] MEDS: Amlodipine 5 MG TAB PO SCH (08:57)
[2020-01-17] MEDS: Citalopram 20 MG TAB PO SCH (08:57)
[2020-01-17] MEDS: Lisinopril 20 MG TAB PO SCH ×2 (08:57→21:33)
[2020-01-17] MEDS: Famotidine 20 MG TAB PO SCH ×2 (08:58→21:33)
[2020-01-17] MEDS: Enoxaparin Sodium 40 MG/0.4 ML SYRINGE SC SCH (08:58)
[2020-01-17] MEDS: Furosemide 40 MG TAB PO SCH (08:59)
[2020-01-17] MEDS: HYDROcodone/Acetaminophen 5/325 mg Tablet PO PRN ×3 (10:01→22:15)
[2020-01-17] MEDS: Acetaminophen 325 MG TAB PO PRN (11:33)
--- NOTE | 2020-01-17 13:01 | PRG ---
DATE OF SERVICE: 01/16/2020 SUBJECTIVE: This is a pleasant 89-year-old female, here status post fall and hip fracture. She is doing well today. She is to have an appointment tomorrow with Dr. Harrison to assess her for a possible fracture of her vertebrae. Overall, she is doing well, working well with therapy. REVIEW OF SYSTEMS: No fever, chills, cough, congestion, or chest pain. PHYSICAL EXAMINATION: VITAL SIGNS: Temperature 98 degrees, pulse 91, respiratory rate 20, O2 sats 98% on room air, blood pressure 116/57. GENERAL: Well appearing, in no acute distress. [place] collar in place with no pressure ulcers or wounds seen. CARDIOVASCULAR: Regular rate and rhythm. No murmurs, gallops, or rubs. RESPIRATORY: Clear to auscultation bilaterally. No wheezes. GI: Soft, nontender to palpation. Bowel sounds present in all 4 quadrants. EXTREMITIES: Right hip incision seen, clean, dry, and intact. LABORATORY DATA: No new labs. ASSESSMENT: 1. Weakness, status post right hip fracture repair and replacement. 2. Vertebral fracture with [place] collar in place. 3. Hypertension, well controlled. PLAN: Continue oral antihypertensives. Continue PT/OT services. The patient has a neurosurgery appointment set for January 16. We will keep [place] collar on prophylactically until then follow up with appointment tomorrow. Case Management has been consulted for discharge planning and will set up home health for patient. Job ID: [id number]
--- NOTE | 2020-01-17 13:03 | PRG ---
DATE OF SERVICE: SUBJECTIVE: The patient is a pleasant 89-year-old female, status post hip fracture and hip repair. The patient was supposed to have an appointment today with Dr. Harrison to assess her for possible vertebral fracture; however, Dr. Harrison had a medical emergency and was not able to have the meeting. They will have the meeting set up for later time, but we do not know what time that is going to be. She still has her [place] collar in place and will continue with that prophylactically until she is seen by Dr. Harrison. Overall doing well. No complaints. Working well with therapy. REVIEW OF SYSTEMS: No fever, chills, cough, congestion, or chest pain. PHYSICAL EXAMINATION: VITAL SIGNS: Today, temperature 97.6, pulse 91, blood pressure 123/51, respiratory rate 18, and O2 saturation is 98% on room air. GENERAL: Well appearing, in no acute distress. [place] collar in place with no pressure wounds or ulcers. CARDIOVASCULAR: Regular rate and rhythm. No murmurs, gallops, or rubs. RESPIRATORY: Clear to auscultation bilaterally. No wheezes. GI: Soft, nontender to palpation in all four quadrants. Bowel sounds present in all four quadrants. EXTREMITIES: Right hip incision seen, clean, dry, and intact. ASSESSMENT: 1. Weakness, status post right hip fracture repair and replacement. 2. Vertebral fracture with [place] collar in place. 3. Hypertension, well controlled. PLAN: 1. Continue oral antihypertensives. 2. Continue PT, OT services. 3. Neurosurgery was not able to have the appointment today, therefore, we will follow up with them to see when the next appointment will be. We will keep the [place] collar in place prophylactically until she can see Dr. Harrison. 4. Case Management consult for discharge planning. The patient will be set up with Home Health. The patient's [id number] chose [facility] in [place], [place] for home health. information technology security manager is working to get that set up as well. Job ID: [id number]
[2020-01-17] MEDS: Cyclobenzaprine 10 MG TAB PO PRN (22:18)
[2020-01-18 05:17] LABS: #Basophils 0.1 thou/uL (0.0-0.2); #Eosinphils 0.4 thou/uL (0.0-0.7); #Lymphocytes 1.2 thou/uL (1.20-3.40); #Monocytes 0.6 thou/uL (0.11-0.59); %Basophils 1.6 % (0.0-1.0); %Eosinophils 8.6 % (0.0-10.0); %Lymphocytes 28.7 % (21.0-51.0); %Monocytes 13.2 % (0.0-10.0); Hemoglobin 10.1 g/dL (12.0-16.0); Mean Corpuscular HGB CONC 32.4 g/dL (32.0-36.0); Mean Corpuscular Hemoglobin 30.9 pg (27.0-31.0); Mean Corpuscular Volume 95.3 fL (78.0-98.0); Mean Platelet Volume 6.6 fL (7.4-10.4); Platelet Count 238 thou/uL (130-400); RBC Distribution Width 13.4 % (11.5-14.5); Red Blood Cell (RBC) Count 3.27 mill/uL (4.20-5.40); White Blood Cell (WBC) Count 4.2 thou/uL (4.8-10.8)
[2020-01-18 05:35] LABS: Anion Gap 15 mmol/L (10-20); BUN (Urea Nitrogen) 21 mg/dL (9.8-20.1); Calc. Creatinine Clearance 29 mL/min (70-130); Calcium 8.8 mg/dL (7.8-10.44); Carbon Dioxide 28 mmol/L (23-31); Chloride 101 mmol/L (98-107); Estimated GFR-MDRD 51; Glucose 99 mg/dL (83-110); Potassium 4.2 mmol/L (3.5-5.1); Sodium 140 mmol/L (136-145)
[2020-01-18] MEDS: HYDROcodone/Acetaminophen 5/325 mg Tablet PO PRN ×3 (07:05→21:06)
[2020-01-18] MEDS: Amlodipine 5 MG TAB PO SCH (08:30)
[2020-01-18] MEDS: Lisinopril 20 MG TAB PO SCH ×2 (08:31→21:05)
[2020-01-18] MEDS: Famotidine 20 MG TAB PO SCH ×2 (08:31→21:06)
[2020-01-18] MEDS: Furosemide 40 MG TAB PO SCH (08:31)
[2020-01-18] MEDS: Citalopram 20 MG TAB PO SCH (08:31)
[2020-01-18] MEDS: Enoxaparin Sodium 40 MG/0.4 ML SYRINGE SC SCH (08:31)
[2020-01-18] MEDS: Acetaminophen 325 MG TAB PO PRN ×2 (10:01→16:05)
--- NOTE | 2020-01-18 18:50 | PRG ---
DATE OF SERVICE: 01/18/2020 SUBJECTIVE: Ms. Rutherford is up in her chair and denies any complaints. She is happy with her progress. She states that she is supposed to go home tomorrow. OBJECTIVE: VITAL SIGNS: She is afebrile, heart rate 98, respirations 18, oxygen saturation 97% on room air, blood pressure 144/68. CARDIOVASCULAR SYSTEM: S1 and S2 plus. RESPIRATORY SYSTEM: Normal vesicular breath sounds. ABDOMEN: Soft, nontender. Bowel sounds heard in all quadrants. EXTREMITIES: Without cyanosis or clubbing. CENTRAL NERVOUS SYSTEM: Generalized weakness. LABORATORY VALUES: White count is 4.2, H and H are 10.1 and 31.2. Sodium 140, potassium 4.2, BUN and creatinine are 21 and 1.03. IMPRESSION: 1. Right hip fracture, status post surgical fixation. 2. Cervical vertebral fracture, on conservative management. 3. Hypertension. 4. Dyslipidemia. 5. Osteoporosis. 6. Depression and anxiety. 7. Much improved deconditioning. PLAN: 1. Continue current medications. 2. Heart healthy diet. 3. Cervical spine precautions. 4. DVT prophylaxis. 5. Decubitus precautions. 6. Physical therapy. 7. Discharge planning. 8. Orthopedic precautions. 9. Dr. Cunha should be back tomorrow. Job ID: [id number]
[2020-01-19] MEDS: HYDROcodone/Acetaminophen 5/325 mg Tablet PO PRN (04:14)
[2020-01-19] MEDS: Enoxaparin Sodium 40 MG/0.4 ML SYRINGE SC SCH (07:59)
[2020-01-19] MEDS: Citalopram 20 MG TAB PO SCH (08:00)
[2020-01-19] MEDS: Lisinopril 20 MG TAB PO SCH (08:00)
[2020-01-19] MEDS: Furosemide 40 MG TAB PO SCH (08:00)
[2020-01-19] MEDS: Amlodipine 5 MG TAB PO SCH (08:00)
[2020-01-19] MEDS: Famotidine 20 MG TAB PO SCH (08:01)
[2020-01-19 08:25] VITALS: TEMP 97.9
[2020-01-19 10:30] VITALS: BP 120/58
--- NOTE | 2020-01-20 02:02 | DIS ---
DATE OF ADMISSION: 12/25/2019 DATE OF DISCHARGE: 01/19/2020 PRINCIPAL DIAGNOSES: 1. Cervical vertebral fracture, on conservative management. 2. Right hip fracture, requiring right total hip arthroplasty. 3. Dyslipidemia. 4. Hypertension. 5. Depression and anxiety. 6. Osteoporosis. 7. Gastroesophageal reflux disease. COMPLICATIONS: None. ADVERSE REACTIONS: None. PROCEDURES: None. CONSULTATIONS: PT and OT. HOSPITAL COURSE: The patient was admitted on 12/28/[address] Cunha after suffering a fall requiring the above surgeries. She also was treated conservatively for her cervical spine fracture. She was transferred here for therapy. She has been improving, but therapy feels that she is not safe to ambulate and she is at risk for falls. They wants her to have a manual wheelchair. They state that the patient has been using a manual wheelchair, and is able to use a manual wheelchair. The patient states that she has enough room in her home to use a manual wheelchair, so the order has been written. She was supposed to have an appointment with Dr. Harrison, but it had to be postponed since Dr. Harrison had a medical emergency that he has to attend. The patient states that she uses [facility] in [place] and needs refills and I will send in a month's supply. She also needs pain medications, which I probably need to hand write. PHYSICAL EXAMINATION: VITAL SIGNS: On the day of discharge, she is afebrile. Heart rate 83, respirations 18, oxygen saturation 99% on room air, blood pressure 125/60. CARDIOVASCULAR SYSTEM: S1 and S2 plus. RESPIRATORY SYSTEM: Normal vesicular breath sounds. ABDOMEN: Soft and nontender. Bowel sounds heard in all quadrants. EXTREMITIES: Without cyanosis or clubbing. CENTRAL NERVOUS SYSTEM: Generalized weakness. Otherwise nonfocal. DISCHARGE MEDICATIONS: 1. Tylenol 650 q.4h p.r.n. 2. [place] 5/325 one tablet q.6h p.r.n. 3. Norvasc 10 mg daily. 4. Celexa 40 mg daily. 5. Flexeril 5 mg t.i.d. p.r.n. 6. Pepcid 20 mg b.i.d. 7. Lasix 40 mg daily. 8. Zestril 20 mg b.i.d. 9. Imodium 2 tablets q.6h p.r.n. 10. Senokot-S 2 tablets b.i.d. p.r.n. The only issue I see is pending in her hydrocodone tablets as it is a triplicate and it cannot be sent from the hospital system. I am actually trying to sign in and see if the patient has an account in our office EMR and if that is the case, then I can send it in from there. If we do not have an account, then I am going to send in tramadol 50 mg 1-2 tablets q.6h p.r.n. She is to follow up with Dr. Harrison and her orthopedic surgeon on an outpatient basis as well as her PCP. Home health is being arranged. The patient is homebound. She does qualify for home therapy due to the recent fracture including the cervical fracture. She does need PT, OT, and senior living visit. I will sign the initial order. This document is to be considered as [id number]. All further orders needs to go to her PCP. For full details, please see chart. Total time spent on this discharge including coordination of care was 35 minutes. Job ID: [id number]
== END 2020-01-19 10:30 | disposition home health service (06) | DRG 560 ==
LOC: NAV ACUTE 17:47 → UNDOADMIN 17:55 → UNDODISIN 12-29 14:30
PROVIDERS: ADMIT Family Medicine; ATTEND Family Medicine
DX: Z47.1 Aftercare following joint replacement surgery (principal); S12.9XXA Fracture of neck, unspecified, initial encounter; Z96.641 Presence of right artificial hip joint; I10 Essential (primary) hypertension; K59.00 Constipation, unspecified; F32.9 Major depressive disorder, single episode, unspecified; M81.0 Age-related osteoporosis without current pathological fracture; F41.9 Anxiety disorder, unspecified; K21.9 Gastro-esophageal reflux disease without esophagitis
CPT/HCPCS: 36415; 72040; 80048; 85025; J1650